=== PATIENT | female | born 1950 | race Caucasian/White ===

== ENCOUNTER 2017-09-02 09:35 | Emergency (ER) | payer MEDICARE, MEDICAID ==
[~2017-09-02] VITALS: Ht 170.2 cm; Wt 99.0 kg
[~2017-09-02 09:35] MED LIST: ASPI-986 PO; BECL8.7A6 INH; BENA20TA3 PO; CLOP75TA33 PO; FURO-151 PO; GABA-531 PO; GEMF600T3 PO; IBUP-2030 PO; ISOS60TA4 PO; METF500T4 PO; OMEP40CA34 PO; PIOG30TA10 PO; POTA10CA42 PO; PROAIR INH; SIMV80TA70 PO
[2017-09-02 10:00] VITALS: BP 141/66
== END 2017-09-02 11:16 | disposition home or self-care (01) ==
LOC: ER 09:57
DX: R09.89 Other specified symptoms and signs involving the circulatory and respiratory systems (principal); M19.90 Unspecified osteoarthritis, unspecified site; J45.909 Unspecified asthma, uncomplicated; E11.9 Type 2 diabetes mellitus without complications; E78.00 Pure hypercholesterolemia, unspecified; I10 Essential (primary) hypertension; Z79.82 Long term (current) use of aspirin
CPT/HCPCS: 71045; 99283